=== PATIENT | male | born 1950 | race Caucasian/White ===

== ENCOUNTER → 2019-05-03 12:30 | Outpatient (POV) | payer MEDICARE, MEDICAID, SELFPAY | PROVIDERS: PCP Specialist; Visit Provider Specialist | DX: M79.604 Pain in right leg (principal); M79.605 Pain in left leg; M79.601 Pain in right arm; M79.602 Pain in left arm; R27.0 Ataxia, unspecified; R20.8 Other disturbances of skin sensation; G62.9 Polyneuropathy, unspecified | CPT/HCPCS: 95886; 95909 ==

== ENCOUNTER → 2019-06-27 07:39 | Outpatient (CLI) | payer MEDICARE, MEDICAID, SELFPAY ==
[2019-06-28 17:25] LABS: Covid-19 Nasal PCR Sendout UK Not Detected
== END ==
PROVIDERS: PCP Emergency Medicine; Visit Provider Ophthalmology
DX: Z03.818 Encounter for observation for suspected exposure to other biological agents ruled out (principal)
CPT/HCPCS: U0003

== ENCOUNTER 2019-06-29 08:20 | Day surgery (SDC) | payer MEDICARE, MEDICAID, SELFPAY ==
--- NOTE | 2019-06-24 12:28 | SUR.PREOP ---
06/24/2019 @ 7259---PHONE CALL MADE TO PATIENT. PATIENT UNDERSTANDS THAT LAB WORK AND COVID TESTING NEEDS TO BE COMPLETED @ 0730 ON 06/27/2019. PATIENT UNDERSTANDS IF LAB WORK AND COVID-19 TESTS ARE NOT COMPLETED BY 12PM ON THAT DATE, THE SURGERY SCHEDULED WILL BE CANCELLED AND RESCHEDULED FOR ANOTHER TIME.
[2019-06-28 14:11] VITALS: BMI 19.8
[2019-06-29] VITALS (8 sets, daily range): BP systolic 96–112; BP diastolic 51–68; PULSE 54–78; RESP 16–18; TEMP 36.6–36.7; O2SAT 97–100
== END 2019-06-29 10:29 | disposition home or self-care (01) ==
LOC: OR 08:22
PROVIDERS: PCP Emergency Medicine; Visit Provider Ophthalmology
DX: H25.811 Combined forms of age-related cataract, right eye (principal); H27.131 Posterior dislocation of lens, right eye; Z79.899 Other long term (current) drug therapy
CPT/HCPCS: 66982; V2632

== ENCOUNTER → 2019-07-12 07:07 | Outpatient (CLI) | payer MEDICARE, MEDICAID, SELFPAY ==
[2019-07-12 08:57] LABS: Coronavirus 19 IgG Antibody Negative (Negative); Coronavirus 19 IgM Antibody Negative (Negative)
== END ==
PROVIDERS: PCP Emergency Medicine; Visit Provider Ophthalmology
DX: Z01.818 Encounter for other preprocedural examination (principal)
CPT/HCPCS: 36415; 86328

== ENCOUNTER 2019-07-13 07:50 | Day surgery (SDC) | payer MEDICARE, MEDICAID, SELFPAY ==
--- NOTE | 2019-07-07 13:25 | SUR.PREOP ---
07/07/2019 @ 1320--PHONE CALL MADE TO PATIENT. PATIENT UNDERSTANDS THAT LAB WORK AND COVID TESTING NEEDS TO BE COMPLETED @ 0700 ON 07/12/2019. PATIENT UNDERSTANDS IF LAB WORK AND COVID-19 TESTS ARE NOT COMPLETED BY 12PM ON THAT DATE, THE SURGERY SCHEDULED WILL BE CANCELLED AND RESCHEDULED FOR ANOTHER TIME.
[2019-07-08 15:12] VITALS: BMI 19.8
[2019-07-13] VITALS (8 sets, daily range): BP systolic 105–118; BP diastolic 52–71; PULSE 52–69; RESP 16–20; TEMP 36.2; O2SAT 69–100
== END 2019-07-13 09:56 | disposition home or self-care (01) ==
LOC: OR 07:54
PROVIDERS: PCP Emergency Medicine; Visit Provider Ophthalmology
DX: H26.20 Unspecified complicated cataract (principal); H25.813 Combined forms of age-related cataract, bilateral; H02.839 Dermatochalasis of unspecified eye, unspecified eyelid; G90.9 Disorder of the autonomic nervous system, unspecified; Z79.899 Other long term (current) drug therapy
CPT/HCPCS: 66982; V2632

== ENCOUNTER → 2019-11-01 15:17 | Outpatient (CLI) | payer MEDICARE, MEDICAID, SELFPAY ==
[2019-11-01 15:56] LABS: Basophils % 0.3 % (0.1-2.0); Eosinophils # 0.1 K/mm3 (0.0-0.4); Hematocrit 41.7 % (42.0-52.0); Hemoglobin 13.9 g/dL (14.1-18.0); Lymphocytes % 18.3 % (10-50); Mean Corpuscular HGB Conc 33.4 g/dL (31.8-35.4); Mean Corpuscular Hemoglobin 30.8 pg (27.0-31.2); Mean Corpuscular Volume 92.3 fl (80-94); Mean Platelet Volume 9.7 fl (7.4-10.4); Monocytes # 0.9 K/mm3 (0.1-1.0); Monocytes % 8.1 % (1.7-9.3); Neutrophils # 7.8 K/mm3 (1.8-7.8); Neutrophils % 72.3 % (37.0-80.0); Platelet Count 246 K/mm3 (142-424); Red Blood Count 4.52 M/mm3 (4.60-6.20); White Blood Count 10.7 K/mm3 (4.8-10.8)
[2019-11-01 16:20] LABS: Alanine Aminotransferase 8 U/L (12-78); Albumin Level 3.9 g/dl (3.5-5.0); Albumin/Globulin Ratio 1.2 (1.1-1.8); Alkaline Phosphatase 137 U/L (38-126); Anion Gap 13.8 mEq/L (5-15); Aspartate Amino Transferase 23 U/L (17-59); Bilirubin,Total 0.5 mg/dl (0.2-1.3); Blood Urea Nitrogen 11 mg/dl (9-20); Calcium 9.3 mg/dl (8.4-10.2); Carbon Dioxide 29 mmol/L (22.0-30.0); Chloride 103 mmol/L (98-107); Chol/HDL Ratio 2.9 (1-3.5); Cholesterol 146 mg/dl (140-200); Estimated Glomerular Filt Rate 83 ml/min (>60); GFR (African American) 101 ML/MIN (>60); Globulin 3.2 g/dL (1.3-3.2); Glucose 94 mg/dl (74-100); HDL Cholesterol 50 mg/dl (40-60); Potassium 4.8 mmoL/L (3.5-5.1); Sodium 141 mmol/L (136-145); Total Protein,Serum 7.1 g/dl (6.3-8.2); Triglycerides 82 mg/dl (30-150); VLDL Cholesterol 16 mg/dL (0-40)
[2019-11-01 16:29] LABS: 25-OH Vitamin D, Total 38.1 ng/mL (30-100)
[2019-11-01 16:30] LABS: Direct LDL Cholesterol 88.29 mg/dL (100-129)
[2019-11-01 16:38] LABS: Free T4 (Free Thyroxine) 1.01 ng/dl (0.78-2.19)
[2019-11-01 16:50] LABS: Thyroid Stimulating Hormone 1.35 uIU/mL (0.465-4.68)
== END ==
PROVIDERS: Visit Provider Emergency Medicine
DX: I10 Essential (primary) hypertension (principal); E55.9 Vitamin D deficiency, unspecified
CPT/HCPCS: 80053; 80061; 82306; 84439; 84443; 85025

== ENCOUNTER → 2021-04-04 14:37 | Outpatient (CLI) | payer MEDICARE, MEDICAID, SELFPAY ==
[2021-04-04 13:18] LABS: Basophils # 0.1 K/mm3 (0-0.2); Basophils % 0.8 % (0.1-2.0); Eosinophils # 0.1 K/mm3 (0.0-0.4); Eosinophils % 1.3 % (0.1-12.0); Hematocrit 39.6 % (42.0-52.0); Hemoglobin 12.6 g/dL (14.1-18.0); Lymphocytes # 1.7 K/mm3 (0.7-4.5); Lymphocytes % 23.1 % (10-50); Mean Corpuscular HGB Conc 31.7 g/dL (31.8-35.4); Mean Corpuscular Hemoglobin 28.7 pg (27.0-31.2); Mean Corpuscular Volume 90.5 fl (80-94); Mean Platelet Volume 10.3 fl (7.4-10.4); Monocytes # 0.8 K/mm3 (0.1-1.0); Monocytes % 10.6 % (1.7-9.3); Neutrophils # 4.7 K/mm3 (1.8-7.8); Neutrophils % 64.2 % (37.0-80.0); Platelet Count 274 K/mm3 (142-424); Red Blood Count 4.38 M/mm3 (4.60-6.20); Red Cell Distribution Width 13.5 % (11.5-17.5); White Blood Count 7.3 K/mm3 (4.8-10.8)
[2021-04-04 14:00] LABS: Free T4 (Free Thyroxine) 1.25 ng/dl (0.78-2.19)
[2021-04-04 14:02] LABS: 25-OH Vitamin D, Total < 12.8 ng/mL (30-100)
[2021-04-04 15:07] LABS: Chloride 102 mmol/L (98-107); Sodium 136 mmol/L (136-145)
[2021-04-04 15:08] LABS: Potassium 4.2 mmoL/L (3.5-5.1)
[2021-04-04 15:10] LABS: Alanine Aminotransferase 9 U/L (12-78); Albumin/Globulin Ratio 1.3 (1.1-1.8); Alkaline Phosphatase 116 U/L (38-126); Anion Gap 9.2 mEq/L (5-15); Aspartate Amino Transferase 21 U/L (17-59); Bilirubin,Total 0.6 mg/dl (0.2-1.3); Blood Urea Nitrogen 16 mg/dl (9-20); Carbon Dioxide 29 mmol/L (22.0-30.0); Cholesterol 139 mg/dl (140-200); Estimated Glomerular Filt Rate 73 ml/min (>60); GFR (African American) 89 ML/MIN (>60); Triglycerides 77 mg/dl (30-150); VLDL Cholesterol 15 mg/dL (0-40)
[2021-04-04 15:11] LABS: Calcium 8.4 mg/dl (8.4-10.2); Chol/HDL Ratio 4.2 (1-3.5); Glucose 80 mg/dl (74-100); HDL Cholesterol 33 mg/dl (40-60)
[2021-04-04 15:22] LABS: Direct LDL Cholesterol 98.64 mg/dL (100-129)
[2021-04-04 15:39] LABS: Thyroid Stimulating Hormone 2.15 uIU/mL (0.465-4.68)
[2021-04-04 16:30] LABS: Prostate Specific Ag Screen 0.5 ng/ml (0.0-4.0)
== END ==
PROVIDERS: Visit Provider Emergency Medicine
DX: I10 Essential (primary) hypertension (principal); Z12.5 Encounter for screening for malignant neoplasm of prostate; E55.9 Vitamin D deficiency, unspecified
CPT/HCPCS: 80053; 80061; 82306; 84439; 84443; 85025; G0103

== ENCOUNTER → 2022-03-29 14:39 | Outpatient (CLI) | payer MEDICARE, MEDICAID, SELFPAY ==
[2022-03-29 15:06] LABS: Basophils % 0.3 % (0.1-2.0); Eosinophils # 0.1 K/mm3 (0.0-0.4); Eosinophils % 1.5 % (0.1-12.0); Hematocrit 42.3 % (42.0-52.0); Hemoglobin 13.3 g/dL (14.1-18.0); Lymphocytes # 1.8 K/mm3 (0.7-4.5); Lymphocytes % 19.7 % (10-50); Mean Corpuscular HGB Conc 31.5 g/dL (31.8-35.4); Mean Corpuscular Hemoglobin 28.6 pg (27.0-31.2); Mean Corpuscular Volume 90.8 fl (80-94); Monocytes # 0.9 K/mm3 (0.1-1.0); Monocytes % 9.9 % (1.7-9.3); Neutrophils # 6.4 K/mm3 (1.8-7.8); Neutrophils % 68.7 % (37.0-80.0); Platelet Count 297 K/mm3 (142-424); Red Blood Count 4.65 M/mm3 (4.60-6.20); Red Cell Distribution Width 14.4 % (11.5-17.5); White Blood Count 9.3 K/mm3 (4.8-10.8)
[2022-03-29 16:17] LABS: Alanine Aminotransferase 12 U/L (12-78); Albumin Level 4.4 g/dl (3.5-5.0); Albumin/Globulin Ratio 1.4 (1.1-1.8); Alkaline Phosphatase 90 U/L (38-126); Anion Gap 12.6 mEq/L (5-15); Aspartate Amino Transferase 21 U/L (17-59); Bilirubin,Total 0.6 mg/dl (0.2-1.3); Blood Urea Nitrogen 20 mg/dl (9-20); Calcium 9.3 mg/dl (8.4-10.2); Carbon Dioxide 27 mmol/L (22.0-30.0); Chloride 104 mmol/L (98-107); Cholesterol 149 mg/dl (140-200); Estimated Glomerular Filt Rate 42 ml/min (>60); GFR (African American) 51 ML/MIN (>60); Globulin 3.2 g/dL (1.3-3.2); Glucose 107 mg/dl (74-100); HDL Cholesterol 37 mg/dl (40-60); Potassium 4.6 mmoL/L (3.5-5.1); Sodium 139 mmol/L (136-145); Total Protein,Serum 7.6 g/dl (6.3-8.2); Triglycerides 84 mg/dl (30-150); VLDL Cholesterol 17 mg/dL (0-40)
[2022-03-29 16:29] LABS: Direct LDL Cholesterol 94.01 mg/dL (100-129)
[2022-03-29 16:33] LABS: Free T4 (Free Thyroxine) 1.24 ng/dl (0.78-2.19)
[2022-03-29 16:35] LABS: 25-OH Vitamin D, Total 42.3 ng/mL (30-100)
== END ==
PROVIDERS: PCP Emergency Medicine; Visit Provider Emergency Medicine
DX: D89.9 Disorder involving the immune mechanism, unspecified (principal); G90.9 Disorder of the autonomic nervous system, unspecified; I10 Essential (primary) hypertension; E55.9 Vitamin D deficiency, unspecified
CPT/HCPCS: 80053; 80061; 82306; 84439; 84443; 85025